=== PATIENT | male | born 1950 | race Caucasian/White ===

== ENCOUNTER 2017-10-30 09:41 | Emergency (ER) | payer OTHER ==
[~2017-10-30] VITALS: Ht 182.9 cm; Wt 111.0 kg
[2017-10-30 09:47] VITALS: TEMP 36.7; Ht 182.9 cm; Wt 111.0 kg
[2017-10-30] MEDS ORDERED: SODIUM CHLORIDE 0.9% 1000ML 1,000 ML IV STA (10:03)
--- NOTE | 2017-10-30 10:06 | EMERGENCY ROOM VISIT NOTE ---
History Report prepared by Laurence: sEteban Little Under the Supervision of: Dr. Ruben Rico D.O. First contact with patient: 09:50 Chief Complaint: ABDOMINAL PAIN Stated Complaint: PAIN RIGHT SIDE OF AB Nursing Triage Summary: patient c/o right lower abdominal pain that kept him up all night. denies nausea, vomiting, diarrhea History of Present Illness The patient is a 66 year old male who presents to the Emergency Room with complaints of constant right sided abdominal pain starting last night. The patient states that the pain is dull and a 2/10 in severity. The patient denies any back pain or chest pain, and he notes that the pain occasionally radiates into his groin. He states that medications have not helped the pain, and he states that he takes a Pepcid daily. He denies any history of kidney stones or gall stones, and he states that he still has his gall bladder. He reports that he has not been urinating more or less frequent, and he states that his urine has been dark recently. The patient has a history of eye surgery and knee surgery when he was younger. He states that he has had a colonoscopy before, and everything was okay during that. The patient states that he has had a cup of coffee this morning, and he states that this did not make the pain better or worse. He states that he occasionally uses alcohol, and he does not use any tobacco. Source of History: patient Onset: last night Position: abdomen (right sided) Symptom Intensity: 2/10 Quality: dull Timing: constant Associated Symptoms: No chest pain, No back pain Review of Systems See HPI for pertinent positives & negatives. A total of 10 systems reviewed and were otherwise negative. Past Medical & Surgical Surgical Problems: (1) History of eye surgery (2) History of knee surgery Social History Smoking Status: Never Smoker Marital Status: Housing Status: lives with family Occupation Status: retired Current/Historical Medications Scheduled Famotidine (Pepcid), 20 MG PO DAILY Allergies Coded Allergies: Penicillins (Unverified Adverse Reaction, Intermediate, HIVES, 10/30/17) Physical Exam Vital Signs Date Time Temp Pulse Resp B/P (MAP) Pulse Ox O2 Delivery O2 Flow Rate FiO2 10/30/17 13:50 60 16 138/77 95 10/30/17 12:55 58 16 144/75 95 10/30/17 11:01 64 14 127/75 97 Room Air 10/30/17 09:47 36.7 65 20 149/88 96 Room Air Physical Exam GENERAL: Patient is awake, alert, and in no acute distress. Patient is resting comfortably and showing no signs of anxiety EYES: The conjunctivae are clear. The pupils are round and reactive. EARS, NOSE, MOUTH AND THROAT: The nose is without any evidence of any deformity. Mucous membranes are moist tongue is midline NECK: The neck is nontender and supple. RESPIRATORY: Normal respiratory effort is noted there is no evidence of wheezing rhonchi or rales CARDIOVASCULAR: Regular rate and rhythm noted there no murmurs rubs or gallops normal S1 normal S2 GASTROINTESTINAL: The abdomen is mildly distended but soft. There is right sided tenderness to palpation. No guarding or rigidity. BACK: No midline tenderness or or step-off noted range of motion in flexion extension as well as rotation no signs of muscle spasm noted MUSCULOSKELETAL/EXTREMITIES: There is no evidence of gross deformity full range of motion is noted in the hips and shoulders SKIN: There is no obvious evidence of any rash. There are no petechiae, pallor or cyanosis noted. NEUROLOGIC: Patient is awake alert and oriented x3 Medical Decision & Procedures ER Provider Diagnostic Interpretation: Radiology results as stated below per my review and radiologist interpretation: CT SCAN OF THE ABDOMEN AND PELVIS WITHOUT CONTRAST CLINICAL HISTORY: Right flank pain and COMPARISON STUDY: No previous studies for comparison. TECHNIQUE: CT scan of the abdomen and pelvis was performed from the lung bases to the proximal femurs. Images are reviewed in the axial, sagittal, and coronal planes. IV contrast was not administered for this examination. A dose lowering technique was utilized adhering to the principles of ALARA. CT DOSE: 1044.19 mGycm FINDINGS: Lower chest: The heart is normal in size and configuration, without pericardial effusion. The lung bases and pleural spaces are clear. Liver: There are several hypodense hepatic lesions, the largest of which measures 14 mm. These cannot be further characterized on this noncontrast study. Gallbladder: Unremarkable. Spleen: Normal in size and attenuation. Pancreas: Unremarkable. Adrenal glands: Unremarkable. Kidneys: No renal, ureteral, or bladder calculi are visualized. There is a 4 cm left renal cyst. Bowel: There are no transition zones indicate bowel obstruction. There is no evidence of acute diverticulitis. There is no acute appendicitis. Peritoneum: There is no intraperitoneal free air or abdominal ascites. There are tiny fat-containing inguinal hernias. Vasculature: The abdominal aorta is normal in course and caliber. Adenopathy: Aortocaval lymph nodes are the upper limits of normal in size. Pelvic viscera: The prostate is enlarged measuring 63 mm transversely. Skeletal structures: No destructive osseous lesions are seen. IMPRESSION: 1. No evidence of bowel obstruction. No evidence of free air 2. No renal, ureteral, or bladder calculi identified 3. Prostamegaly 4. Retroperitoneal lymph nodes at the upper limits of normal in size 5. 4 cm left renal cyst 6. Nonspecific low-density hepatic lesions. The absence of a primary malignancy these likely represent cysts and/or hemangiomas 7. No evidence of diverticulitis. No evidence of appendicitis. Electronically signed by: German Horta M.D. 10/30/2017 10:42 AM Dictated Date/Time: 10/30/2017 10:36 AM Laboratory Results 10/30/17 10:00 Red Blood Count 5.35, Mean Corpuscular Volume 91.0, Mean Corpuscular Hemoglobin 32.0, Mean Corpuscular Hemoglobin Concent 35.1, Mean Platelet Volume 10.6, Neutrophils (%) (Auto) 56.2, Lymphocytes (%) (Auto) 34.4, Monocytes (%) (Auto) 7.7, Eosinophils (%) (Auto) 0.7, Basophils (%) (Auto) 0.6, Neutrophils # (Auto) 4.63, Lymphocytes # (Auto) 2.83, Monocytes # (Auto) 0.63, Eosinophils # (Auto) 0.06, Basophils # (Auto) 0.05 10/30/17 10:00 Test 10/30/17 10:00 10/30/17 12:15 White Blood Count 8.23 K/uL (4.8-10.8) Red Blood Count 5.35 M/uL (4.7-6.1) Hemoglobin 17.1 g/dL (14.0-18.0) Hematocrit 48.7 % (42-52) Mean Corpuscular Volume 91.0 fL (80-100) Mean Corpuscular Hemoglobin 32.0 pg (25-34) Mean Corpuscular Hemoglobin Concent 35.1 g/dl (32-36) Platelet Count 246 K/uL (130-400) Mean Platelet Volume 10.6 fL (7.4-10.4) Neutrophils (%) (Auto) 56.2 % Lymphocytes (%) (Auto) 34.4 % Monocytes (%) (Auto) 7.7 % Eosinophils (%) (Auto) 0.7 % Basophils (%) (Auto) 0.6 % Neutrophils # (Auto) 4.63 K/uL (1.4-6.5) Lymphocytes # (Auto) 2.83 K/uL (1.2-3.4) Monocytes # (Auto) 0.63 K/uL (0.11-0.59) Eosinophils # (Auto) 0.06 K/uL (0-0.5) Basophils # (Auto) 0.05 K/uL (0-0.2) RDW Standard Deviation 42.9 fL (36.4-46.3) RDW Coefficient of Variation 13.0 % (11.5-14.5) Immature Granulocyte % (Auto) 0.4 % Immature Granulocyte # (Auto) 0.03 K/uL (0.00-0.02) Anion Gap 3.0 mmol/L (3-11) Est Creatinine Clear Calc Drug Dose 74.0 ml/min Estimated GFR () 67.6 Estimated GFR (Non- 58.3 BUN/Creatinine Ratio 15.0 (10-20) Calcium Level 9.4 mg/dl (8.5-10.1) Total Bilirubin 0.8 mg/dl (0.2-1) Direct Bilirubin 0.1 mg/dl (0-0.2) Aspartate Amino Transf (AST/SGOT) 18 U/L (15-37) Alanine Aminotransferase (ALT/SGPT) 29 U/L (12-78) Alkaline Phosphatase 81 U/L (45-117) Total Protein 8.3 gm/dl (6.4-8.2) Albumin 4.1 gm/dl (3.4-5.0) Urine Color YELLOW Urine Appearance CLEAR (CLEAR) Urine pH 7.0 (4.5-7.5) Urine Specific [place] 1.013 (1.000-1.030) Urine Protein NEG (NEG) Urine Glucose (UA) NEG (NEG) Urine Ketones NEG (NEG) Urine Occult Blood NEG (NEG) Urine Nitrite NEG (NEG) Urine Bilirubin NEG (NEG) Urine Urobilinogen NEG (NEG) Urine Leukocyte Esterase NEG (NEG) Laboratory results per my review. Medications Administered Medications (Trade) Dose Ordered Sig/Selena Route Start Time Stop Time Status Last Admin Dose Admin Sodium Chloride 1,000 ml @ 999 mls/hr Q1H1M STAT IV 10/30/17 10:03 10/30/17 11:03 DC 10/30/17 10:08 999 MLS/HR ED Course 0950: The patient was evaluated in room C9. A complete history and physical examination were performed. 1003: NSS 1,000 ml @ 999 mls/hr IV 1302: Upon reevaluation, the patient is doping well. I discussed the results and treatment plan with him. He verbalized agreement of the treatment plan. He was discharged home. Medical Decision Differential diagnosis: Etiologies such as appendicitis, diverticulitis, PUD, biliary pathology, UTI, pancreatitis, obstruction, mesenteric ischemia, aortic pathology, infections, inflammatory bowel disease, renal colic, as well as others were entertained. Nursing notes reviewed. The patient is a 66-year-old male who presented to the emergency department for an evaluation of right-sided pain. The patient's pain was reproducible in the right flank. Initially I was concerned the patient may have a gallbladder issue or possibly a kidney stone. He was concerned about appendicitis but his pain did not appear to be consistent with appendicitis. I discussed patient's laboratory and radiographic studies with him. He did not wish to have any pain medication while he was in the emergency department. No definite cause for his abdominal pain could be found. It is possible this represents early shingles or possibly an abdominal wall muscle strain. He was encouraged to rest and avoid any strenuous activity. I also encouraged him to continue using Motrin and Tylenol for pain and follow-up with his primary care physician as soon as possible. Otherwise I recommended that he return to the emergency department immediately if symptoms change worsen or the need arises. Medication Reconcilliation Current Medication List: was personally reviewed by me Blood Pressure Screening Patient's blood pressure: Elevated blood pressure Blood pressure disposition: Elevated BP felt to be situational Impression Primary Impression: Right sided abdominal pain Scribe Attestation The scribe's documentation has been prepared under my direction and personally reviewed by me in its entirety. I confirm that the note above accurately reflects all work, treatment, procedures, and medical decision making performed by me. Departure Information Dispostion Home / Self-Care Referrals Stephan Munoz D.O. (PCP) Forms Call Back Authorization, HOME CARE DOCUMENTATION FORM, IMPORTANT VISIT INFORMATION Patient Instructions Abdominal Pain, My [facility] Additional Instructions Continue all medications as prescribed. Continue taking Motrin and Tylenol as directed for pain. Avoid any strenuous activity. Return to the emergency department immediately if symptoms change worsen or the need arises.
[2017-10-30 10:13] LABS: BASO % 0.6 %; BASO ABS # 0.05 K/uL (0-0.2); EOS % 0.7 %; EOS ABS # 0.06 K/uL (0-0.5); HEMATOCRIT 48.7 % (42-52); HEMOGLOBIN 17.1 g/dL (14.0-18.0); IG# 0.03 K/uL (0.00-0.02); LYMPH % 34.4 %; LYMPH ABS # 2.83 K/uL (1.2-3.4); MEAN CORPUSCULAR HGB CONC 35.1 g/dl (32-36); MEAN PLATELET VOLUME 10.6 fL (7.4-10.4); MONO % 7.7 %; MONO ABS # 0.63 K/uL (0.11-0.59); NEUT % 56.2 %; NEUT ABS # 4.63 K/uL (1.4-6.5); PLATELET COUNT 246 K/uL (130-400); RED CELL DISTRIBUTION WIDTH SD 42.9 fL (36.4-46.3); WHITE BLOOD COUNT 8.23 K/uL (4.8-10.8)
[2017-10-30 10:27] LABS: ALBUMIN 4.1 gm/dl (3.4-5.0); CALCIUM 9.4 mg/dl (8.5-10.1); CREATININE 1.28 mg/dl (0.60-1.40)
[2017-10-30 10:30] LABS: TOTAL PROTEIN 8.3 gm/dl (6.4-8.2)
[2017-10-30] MEDS ORDERED: FAMO20TA9 PO (10:42)
--- NOTE | 2017-10-30 10:44 | DIAGNOSTIC IMAGING REPORT ---
CT SCAN OF THE ABDOMEN AND PELVIS WITHOUT CONTRAST CLINICAL HISTORY: Right flank pain and COMPARISON STUDY: No previous studies for comparison. TECHNIQUE: CT scan of the abdomen and pelvis was performed from the lung bases to the proximal femurs. Images are reviewed in the axial, sagittal, and coronal planes. IV contrast was not administered for this examination. A dose lowering technique was utilized adhering to the principles of ALARA. CT DOSE: 1044.19 mGycm FINDINGS: Lower chest: The heart is normal in size and configuration, without pericardial effusion. The lung bases and pleural spaces are clear. Liver: There are several hypodense hepatic lesions, the largest of which measures 14 mm. These cannot be further characterized on this noncontrast study. Gallbladder: Unremarkable. Spleen: Normal in size and attenuation. Pancreas: Unremarkable. Adrenal glands: Unremarkable. Kidneys: No renal, ureteral, or bladder calculi are visualized. There is a 4 cm left renal cyst. Bowel: There are no transition zones indicate bowel obstruction. There is no evidence of acute diverticulitis. There is no acute appendicitis. Peritoneum: There is no intraperitoneal free air or abdominal ascites. There are tiny fat-containing inguinal hernias. Vasculature: The abdominal aorta is normal in course and caliber. Adenopathy: Aortocaval lymph nodes are the upper limits of normal in size. Pelvic viscera: The prostate is enlarged measuring 63 mm transversely. Skeletal structures: No destructive osseous lesions are seen. IMPRESSION: 1. No evidence of bowel obstruction. No evidence of free air 2. No renal, ureteral, or bladder calculi identified 3. Prostamegaly 4. Retroperitoneal lymph nodes at the upper limits of normal in size 5. 4 cm left renal cyst 6. Nonspecific low-density hepatic lesions. The absence of a primary malignancy these likely represent cysts and/or hemangiomas 7. No evidence of diverticulitis. No evidence of appendicitis. Electronically signed by: German Horta M.D. 10/30/2017 10:42 AM Dictated Date/Time: 10/30/2017 10:36 AM
[2017-10-30 13:50] VITALS: BP 138/77; PULSE 60; O2SAT 95
== END 2017-10-30 13:48 | disposition home or self-care (01) ==
LOC: C.EDB 09:43 → C.EDC 13:48
DX: R10.31 Right lower quadrant pain (principal); Z79.899 Other long term (current) drug therapy; Z88.0 Allergy status to penicillin